=== PATIENT | male | born 1985 | race Two or more races ===

== ENCOUNTER 2024-11-16 12:41 | Inpatient (IN) | payer OTHER ==
[~2024-11-16] VITALS: Ht 190.5 cm; Wt 76.5 kg
[2024-11-16 15:17] LABS: BASOPHILS % (AUTO) 0.3 % (0.0-2.0); EOSINOPHILS % (AUTO) 0.4 % (1.0-6.0); HEMATOCRIT 49.5 % (41-53); HEMOGLOBIN 16.4 g/dL (13.5-17.5); LYMPHOCYTES # (AUTO) 1.1 K/uL (1.0-4.8); LYMPHOCYTES % (AUTO) 20.2 % (22.0-44.0); MEAN CORPUSCULAR HEMOGLOBIN 29.4 pg (26.0-34.0); MEAN CORPUSCULAR HGB CONC 33.1 G/dL (31.0-37.0); MEAN CORPUSCULAR VOLUME 89 fL (80-100); MONOCYTES # (AUTO) 0.7 K/uL (0.1-1.0); MONOCYTES % (AUTO) 12.2 % (2.0-9.0); NEUTROPHILS # (AUTO) 3.7 K/uL (1.8-7.7); NEUTROPHILS % (AUTO) 66.9 % (40.0-70.0); PLATELET COUNT (AUTO) 176 K/uL (150-450); RED BLOOD CELL COUNT(AUTO) 5.56 MIL/uL (4.50-5.90); RED CELL DISTRIBUTION WIDTH 12.9 % (11.5-14.5); WHITE BLOOD COUNT (AUTO) 5.5 K/uL (4.5-11.0)
[2024-11-16 15:21] LABS: ANION GAP 12 mmol/L (8-16); CARBON DIOXIDE 27 mmol/L (22-29); CHLORIDE 103 mmol/L (98-107); GLOMERULAR FILTR. RATE CALC > 60 mL/min (>60); GLUCOSE,RANDOM 101 mg/dL (70-110); POTASSIUM 4.6 mmol/L (3.5-5.1); SODIUM SERUM 142 mmol/L (136-145); UREA NITROGEN, BLOOD 10 mg/dL (7-18)
[2024-11-16 17:07] LABS: COVID AG,FIA SOURCE NASAL SWAB
[2024-11-16 17:26] LABS: SARS-COV2 (COVID) ANTIGEN,FIA Negative (Negative)
[2024-11-16 17:27] LABS: INFLUENZA TYPE A NEGATIVE FOR TYPE A (NEGATIVE); INFLUENZA TYPE B NEGATIVE FOR TYPE B (NEGATIVE)
[2024-11-17 03:10] VITALS: BP 127/96; PULSE 80; RESP 20; TEMP 98.2; O2SAT 96
[2024-11-17 05:08] LABS: HIV 1-2 SCREEN 4TH GEN W/RFLX Non Reactive (Non Reactive)
[2024-11-17 09:06] VITALS: BP 138/89; PULSE 91; RESP 17; TEMP 97.8; O2SAT 97
[2024-11-17 10:30] VITALS: PULSE 90; RESP 18; O2SAT 97
[2024-11-17 12:20] VITALS: BP 126/85; PULSE 87; RESP 18; TEMP 97.9; O2SAT 100
[2024-11-17] MEDS ORDERED: SODIUM CHLORIDE 3% 15 ML NEB SOLUTION NEB ONE ×2 (14:07→21:26)
[2024-11-17 14:08] LABS: MTB PCR w/Rif. Resistance-SPUT NOT DETECTED (Not Detectd)
[2024-11-17 16:22] VITALS: BP 117/89; PULSE 80; RESP 18; TEMP 98.9; O2SAT 99
[2024-11-17] MEDS: ACETAMINOPHEN 325 MG TABLET PO PRN (18:57)
[2024-11-17 20:45] VITALS: BP 124/93; PULSE 85; RESP 19; TEMP 97.8; O2SAT 96
[2024-11-18] VITALS (7 sets, daily range): BP systolic 114–133; BP diastolic 75–94; PULSE 68–88; RESP 18; TEMP 97.7–98.2; O2SAT 95–98
[2024-11-18] MEDS ORDERED: SODIUM CHLORIDE 3% 15 ML NEB SOLUTION NEB ONE (08:20)
[2024-11-18 13:07] LABS: QUANTIFERON+, Nil Value 0.25 IU/mL; QUANTIFERON+,Mitogen Value >10.00 IU/mL; QUANTIFERON+,TB1 Antigen Value >10.00 IU/mL; QUANTIFERON, TB GOLD PLUS Positive (Negative)
[2024-11-18 17:02] LABS: MTB PCR w/Rif. Resistance-SPUT NOT DETECTED (Not Detectd)
[2024-11-19 00:49] VITALS: BP 119/80; PULSE 70; RESP 18; TEMP 98; O2SAT 96
[2024-11-19 04:47] VITALS: BP 122/78; PULSE 64; RESP 18; TEMP 97.9; O2SAT 97
[2024-11-19 09:30] VITALS: BP 118/74; PULSE 68; RESP 18; TEMP 98; O2SAT 98
[2024-11-19 14:51] VITALS: BP 119/72; PULSE 72; RESP 18; TEMP 98; O2SAT 96
[2024-11-19 20:12] VITALS: BP 119/65; PULSE 73; RESP 18; TEMP 98.3; O2SAT 97
[2024-11-19] MEDS: ZOLPIDEM TARTRATE 5 MG TABLET PO PRN (20:25)
[2024-11-20 05:45] VITALS: BP 126/88; PULSE 74; RESP 18; TEMP 97.9; O2SAT 99
[2024-11-20 08:50] VITALS: BP 122/90; PULSE 77; RESP 20; TEMP 97.9; O2SAT 98
[2024-11-20 20:25] VITALS: BP 125/94; PULSE 72; RESP 18; TEMP 97.5; O2SAT 97
[2024-11-21 08:46] VITALS: BP 133/92; PULSE 66; RESP 19; TEMP 98.2; O2SAT 97
[2024-11-21 15:20] VITALS: BP 137/86; PULSE 62; RESP 18; TEMP 98.2; O2SAT 98
[2024-11-21 20:34] VITALS: BP 132/97; PULSE 62; RESP 20; TEMP 98.2; O2SAT 98
[2024-11-22 05:38] VITALS: BP 126/95; PULSE 68; RESP 18; TEMP 98.1; O2SAT 99
[2024-11-22 08:54] VITALS: BP 126/91; PULSE 79; RESP 18; TEMP 98.4; O2SAT 98
[2024-11-22 21:00] VITALS: BP 125/89; PULSE 77; RESP 18; TEMP 97.5; O2SAT 98
[2024-11-23 04:44] VITALS: BP 139/96; PULSE 79; RESP 18; TEMP 97.8; O2SAT 99
[2024-11-23 09:04] VITALS: BP 116/87; PULSE 85; RESP 18; TEMP 97.8; O2SAT 100
[2024-11-23 19:35] VITALS: BP 133/87; PULSE 76; RESP 18; TEMP 97.9; O2SAT 98
[2024-11-24 04:10] VITALS: BP 125/92; PULSE 78; RESP 18; TEMP 97.5; O2SAT 98
[2024-11-24] MEDS ORDERED: ONDANSETRON 4 MG TABLET PO PRN (08:00)
[2024-11-24 09:11] VITALS: BP 133/88; PULSE 79; RESP 20; TEMP 98.1; O2SAT 97
[2024-11-24] MEDS: PYRIDOXINE HCL 50 MG TABLET PO SCH (15:36)
[2024-11-24] MEDS: ISONIAZID 300 MG TABLET PO SCH (15:36)
[2024-11-24] MEDS: ETHAMBUTOL HCL 400 MG TABLET PO SCH (15:36)
[2024-11-24] MEDS: RIFAMPIN 300 MG CAPSULE PO SCH (15:36)
[2024-11-24] MEDS: PYRAZINAMIDE 500 MG TABLET PO SCH (15:37)
[2024-11-24 20:21] VITALS: BP 118/94; PULSE 62; RESP 20; TEMP 97.5; O2SAT 98
[2024-11-25 04:36] VITALS: BP 130/95; PULSE 63; RESP 20; TEMP 97.6; O2SAT 98
[2024-11-25 08:00] VITALS: BP 126/88; RESP 20; TEMP 98.4; O2SAT 99
[2024-11-25 08:08] VITALS: BP 126/88; PULSE 89; RESP 20; TEMP 93.4; O2SAT 99
[2024-11-25 20:22] VITALS: BP 106/82; PULSE 68; RESP 20; TEMP 98.2; O2SAT 96
[2024-11-26 04:49] VITALS: BP 116/90; PULSE 78; RESP 18; TEMP 97.9; O2SAT 97
[2024-11-26 08:55] VITALS: BP 126/92; PULSE 87; RESP 18; TEMP 97.7; O2SAT 97
[2024-11-26 20:22] VITALS: BP 113/87; PULSE 68; RESP 18; TEMP 98.2; O2SAT 96
[2024-11-27 07:00] VITALS: BP 119/87; PULSE 67; RESP 19; TEMP 97.9; O2SAT 96
[2024-11-27 08:20] VITALS: BP 123/83; PULSE 77; RESP 20; TEMP 97.5; O2SAT 97
[2024-11-27 11:49] LABS: BASOPHILS % (AUTO) 0.1 % (0.0-2.0); EOSINOPHILS % (AUTO) 5.5 % (1.0-6.0); HEMATOCRIT 48.5 % (41-53); HEMOGLOBIN 16.4 g/dL (13.5-17.5); LYMPHOCYTES # (AUTO) 1.6 K/uL (1.0-4.8); LYMPHOCYTES % (AUTO) 24.3 % (22.0-44.0); MEAN CORPUSCULAR HEMOGLOBIN 29.8 pg (26.0-34.0); MEAN CORPUSCULAR HGB CONC 33.7 G/dL (31.0-37.0); MEAN CORPUSCULAR VOLUME 88 fL (80-100); MONOCYTES # (AUTO) 0.6 K/uL (0.1-1.0); MONOCYTES % (AUTO) 8.9 % (2.0-9.0); NEUTROPHILS # (AUTO) 3.9 K/uL (1.8-7.7); NEUTROPHILS % (AUTO) 61.2 % (40.0-70.0); PLATELET COUNT (AUTO) 353 K/uL (150-450); RED CELL DISTRIBUTION WIDTH 12.5 % (11.5-14.5); WHITE BLOOD COUNT (AUTO) 6.4 K/uL (4.5-11.0)
[2024-11-27 12:21] LABS: ALANINE AMINOTRANSFERASE 58 U/L (12-78); ALBUMIN 3.6 g/dL (3.4-5.0); ALKALINE PHOSPHATASE 101 U/L (46-116); ANION GAP 4 mmol/L (8-16); ASPARTATE AMINOTRANSFERASE 25 U/L (15-37); BILIRUBIN,TOTAL 0.6 mg/dL (0.1-1.0); CALCIUM, TOTAL 8.9 mg/dL (8.8-10.5); CARBON DIOXIDE 29 mmol/L (22-29); CHLORIDE 103 mmol/L (98-107); GLOMERULAR FILTR. RATE CALC > 60 mL/min (>60); GLUCOSE,RANDOM 105 mg/dL (70-110); POTASSIUM 4.4 mmol/L (3.5-5.1); SODIUM SERUM 136 mmol/L (136-145); TOTAL PROTEIN, SERUM 7.3 g/dL (6.4-8.2); UREA NITROGEN, BLOOD 13 mg/dL (7-18)
[2024-11-27 19:48] VITALS: BP 126/90; PULSE 86; RESP 18; TEMP 97.2; O2SAT 96
[2024-11-28 04:00] VITALS: BP 135/85; PULSE 83; RESP 20; TEMP 98.4; O2SAT 97
[2024-11-28 07:52] VITALS: BP 125/96; PULSE 99; RESP 19; TEMP 97.5; O2SAT 100
[2024-11-28] MEDS ORDERED: PYRA500T33 PO (17:04)
[2024-11-28] MEDS ORDERED: RIFA300C63 PO (17:04)
[2024-11-28] MEDS ORDERED: ETHA400T25 PO (17:04)
[2024-11-28] MEDS ORDERED: ISON300T90 PO (17:04)
[2024-11-28] MEDS ORDERED: ACET-2247 PO (17:04)
[2024-11-28] MEDS ORDERED: PYRI-9 PO (17:04)
[2024-11-28 20:22] VITALS: BP 105/67; PULSE 93; RESP 20; TEMP 98.6; O2SAT 98
== END 2024-11-28 18:45 | DRG 179 ==
LOC: EMS 12:41 → EDH 17:12 → 5S 11-17 01:48 → 6S 11-19 15:34
PROVIDERS: ADMIT Internal Medicine; ATTEND Internal Medicine
DX: A15.0 Tuberculosis of lung (principal); F17.200 Nicotine dependence, unspecified, uncomplicated; J06.9 Acute upper respiratory infection, unspecified; Z20.822 Contact with and (suspected) exposure to COVID-19; Z71.6 Tobacco abuse counseling
CPT/HCPCS: 71045; 71250; 80048; 80053; 85025; 86480; 87015; 87206; 87389; 87556; 87804; 94640; 99285; G0378; 36415-L1; 36415-TC